=== PATIENT | female | born 1945 | race Two or more races ===

== ENCOUNTER → 2016-06-04 | Outpatient (CLI) | payer MEDICARE, MEDICAID ==
[~2016-06-04] MED LIST: ASPIRIN EC81 MG ORAL; BACLOFEN10 MG ORAL; CALCIUM500 M2 PO; CELEXA20 MG ORAL; ENALAPRIL MALEAT5 MG ORAL; FAMOTIDINE20 MG ORAL; FISH OIL 1,0001 EAC1 ORAL; FOLIC ACID1 MG ORAL; MECLIZINE HCL25 MG ORAL; MELOXICAM7.5 MG PO; PROTONIX40 MG ORAL; VITAMIN B COMP1 EAC2 ORAL; VITAMIN D31000 UNI1 PO; XANAX0.5 MG ORAL; ZOCOR40 MG ORAL
[2016-06-04 13:09] VITALS: BP 109/62
--- NOTE | 2016-06-04 13:41 | GI Progress Note ---
Assessment/Plan Problems: (1) Abdominal pain ICD Codes: R10.9 - Unspecified abdominal pain SNOMED: 01625078 (2) GERD (gastroesophageal reflux disease) ICD Codes: K21.9 - Gastro-esophageal reflux disease without esophagitis SNOMED: 105874561 (3) Gastritis ICD Codes: K29.70 - Gastritis, unspecified, without bleeding SNOMED: 7943063 (4) Hiatal hernia ICD Codes: K44.9 - Diaphragmatic hernia without obstruction or gangrene SNOMED: 23127298 (5) S/P endoscopy ICD Codes: Z98.89 - Other specified postprocedural states SNOMED: 659144703, 785815865, 862248706 Status: stable Status Narrative Seen with Dr. Helm. Assessment/Plan rx simethicone 160mg TID rx baclofen cont PPI QOD RTC x 3 months last colonoscopy x 6 years Subjective Gastrointestinal/Abdominal: Reports: abdominal pain, nausea Subjective GERD >> much better, d/c Protonix, famotidine. Objective Last 24 Hour Vital Signs Date Time Temp Pulse Resp B/P Pulse Ox O2 Delivery O2 Flow Rate FiO2 06/04/16 13:09 98.2 80 16 109/62 General Appearance: no apparent distress, alert Cardiovascular: normal rate Respiratory/Chest: normal breath sounds, no respiratory distress Abdominal Exam: normal bowel sounds, non tender, soft Extremities: normal range of motion Objective last colon x 6 years Itzel Handley N.P. Jun 04, 2016 13:41
== END | disposition home or self-care (01) ==
LOC: PAN 12:57
DX: K21.9 Gastro-esophageal reflux disease without esophagitis (principal); K29.70 Gastritis, unspecified, without bleeding; R10.9 Unspecified abdominal pain; K44.9 Diaphragmatic hernia without obstruction or gangrene; Z98.890 Other specified postprocedural states; R11.0 Nausea
CPT/HCPCS: 99211

== ENCOUNTER → 2016-09-25 | Outpatient (CLI) | payer MEDICARE, MEDICAID ==
--- NOTE | 2016-09-25 14:26 | GI Progress Note ---
Assessment/Plan Problems: (1) Insomnia ICD Codes: G47.00 - Insomnia, unspecified SNOMED: 108949030 (2) Gastritis ICD Codes: K29.70 - Gastritis, unspecified, without bleeding SNOMED: 7192522 (3) GERD (gastroesophageal reflux disease) ICD Codes: K21.9 - Gastro-esophageal reflux disease without esophagitis SNOMED: 524785154 (4) Abdominal pain ICD Codes: R10.9 - Unspecified abdominal pain SNOMED: 32341742 (5) Hiatal hernia ICD Codes: K44.9 - Diaphragmatic hernia without obstruction or gangrene SNOMED: 05774115 (6) S/P endoscopy ICD Codes: Z98.89 - Other specified postprocedural states SNOMED: 838763468, 998070125, 958994897 Status: stable Status Narrative Seen with Dr. Helm. Assessment/Plan s/p EGD 01/2106 >> gastritis s/p colonoscopy 2010 >> diverticulosis refill protonix >> takes q friday and rx Ambien 5mg QHS x 14 days recommended psychiatry consult for increased anxiety RTC x 3 months pt has pacemaker Subjective Subjective GERD >> occasional discomfort that comes and goes Objective T 98.8 BP 116/67 P 69 94 RA Denies weight loss General Appearance: no apparent distress, alert Cardiovascular: normal rate Respiratory/Chest: normal breath sounds, no respiratory distress Abdominal Exam: normal bowel sounds, non tender, soft Extremities: normal range of motion Itzel Handley N.P. Sep 25, 2016 14:26
== END | disposition home or self-care (01) ==
LOC: PAN 13:17
DX: K29.70 Gastritis, unspecified, without bleeding (principal); K21.9 Gastro-esophageal reflux disease without esophagitis; G47.00 Insomnia, unspecified; R10.9 Unspecified abdominal pain; K44.9 Diaphragmatic hernia without obstruction or gangrene; Z98.890 Other specified postprocedural states
CPT/HCPCS: 99211

== ENCOUNTER 2016-12-25 13:06 | Outpatient (CLI) | payer MEDICARE, MEDICAID ==
[2016-12-25 13:30] VITALS: BP 117/61
--- NOTE | 2016-12-25 14:17 | GI Progress Note ---
Assessment/Plan Problems: (1) GERD (gastroesophageal reflux disease) ICD Codes: K21.9 - Gastro-esophageal reflux disease without esophagitis SNOMED: 104737552 (2) Abdominal pain ICD Codes: R10.9 - Unspecified abdominal pain SNOMED: 10716056 (3) Gastritis ICD Codes: K29.70 - Gastritis, unspecified, without bleeding SNOMED: 8059274 Status: stable Status Narrative Seen with Dr. Helm. Assessment/Plan s/p EGD 01/2106 >> gastritis s/p colonoscopy 2010 >> diverticulosis trial rx of baclofen recommended psychiatry consult for increased anxiety RTC x 3 months pt has pacemaker Subjective Subjective GERD, no complaint of acid reflux not taking protonix not taking meloxicam Objective Last 24 Hour Vital Signs Date Time Temp Pulse Resp B/P (MAP) Pulse Ox O2 Delivery O2 Flow Rate FiO2 12/25/16 13:30 98.0 68 16 117/61 General Appearance: no apparent distress, alert Cardiovascular: normal rate Respiratory/Chest: normal breath sounds, no respiratory distress Abdominal Exam: normal bowel sounds, non tender, soft Extremities: normal range of motion, non-tender Itzel Handley N.P. Dec 25, 2016 14:17
== END 2016-12-25 14:00 | disposition home or self-care (01) ==
LOC: PAN 13:06
DX: K21.9 Gastro-esophageal reflux disease without esophagitis (principal); R10.9 Unspecified abdominal pain; K29.70 Gastritis, unspecified, without bleeding; Z95.0 Presence of cardiac pacemaker
CPT/HCPCS: 99211